=== PATIENT | male | born 1970 | race Caucasian/White ===

== ENCOUNTER 2022-11-24 15:14 | Outpatient (CLI) | payer BC, SELFPAY | END 2022-11-24 15:15 | disposition home or self-care (01) | PROVIDERS: PCP Family Medicine; Visit Provider Family Medicine | DX: E13.9 Other specified diabetes mellitus without complications (principal); I10 Essential (primary) hypertension; E78.5 Hyperlipidemia, unspecified; E66.9 Obesity, unspecified | CPT/HCPCS: 80048; 80061 ==

== ENCOUNTER 2023-01-28 06:09 | Outpatient (CLI) | payer BC, SELFPAY | END 2023-01-28 06:10 | disposition home or self-care (01) | LOC: OP CLINIC 06:09 | PROVIDERS: PCP Family Medicine; Visit Provider Internal Medicine | DX: Z12.11 Encounter for screening for malignant neoplasm of colon (principal); K63.5 Polyp of colon; K57.30 Diverticulosis of large intestine without perforation or abscess without bleeding | CPT/HCPCS: 45385; 88305; J2250; J3010 ==

== ENCOUNTER 2024-01-11 11:07 | Outpatient (CLI) | payer BC, SELFPAY | END 2024-01-11 11:08 | disposition home or self-care (01) | PROVIDERS: PCP Family Medicine; Visit Provider Family Medicine | DX: E78.2 Mixed hyperlipidemia (principal); I10 Essential (primary) hypertension; E11.65 Type 2 diabetes mellitus with hyperglycemia; Z12.5 Encounter for screening for malignant neoplasm of prostate | CPT/HCPCS: 80048; 80061; 84681; G0103 ==

== ENCOUNTER 2024-03-28 13:19 | Inpatient (IN) | payer BC, SELFPAY ==
[2024-03-28] VITALS (8 sets, daily range): BP systolic 125–164; BP diastolic 73–94; PULSE 72–86; RESP 18–20; TEMP 36.2–36.8; O2SAT 97–99; BMI 40.7; BMI 43.2
--- NOTE | 2024-03-28 13:39 | ED_ITS ---
HPI - Nausea/Vomiting/Diarrhea General Time Seen by Provider: 13:40 Date Seen: 03/28/24 Chief complaint: Nausea/Vomiting Stated complaint: dizzy, vomiting, diarrhea Time Seen by Provider: 03/28/24 13:25 Source: patient and RN notes reviewed Mode of arrival: ambulatory Limitations: no limitations History of Present Illness HPI Narrative: This 53-year-old male is ambulatory into the ED with complaints of nausea, vomiting and diarrhea since Tuesday. Today is currently Tuesday and his symptoms are ongoing. He notes that he feels the worst in the morning. There are times where he is able to eat and drink. He was started on Ozempic for diabetic control and weight loss so that he could have an abdominal wall hernia repaired. He is having no abdominal pain, he states his hernia is not even hurting. There has been no blood in the vomit or diarrhea. He has had no fevers. He had his dose increased about 3 weeks ago, symptoms would have started about 2 and adame lf weeks after the dose increase. He has had no travel, no known ill contacts, has not suspected any foods. He does note diminished appetite overall with this medicine. MD elicited complaint: nausea, vomiting and diarrhea Associated abdominal pain: No Related Data Home Medications ?Medication ?Instructions ?Recorded ?Confirmed aspirin 81 mg tablet,delayed 81 mg PO QDAY 06/08/23 03/28/24 release (Adult Aspirin Regimen) Previous Rx's ?Medication ?Instructions ?Recorded amlodipine 10 mg tablet 10 mg PO QDAY #90 tabs 01/11/24 atorvastatin 40 mg tablet 40 mg PO QHS #90 tabs 01/11/24 chlorthalidone 25 mg tablet 25 mg PO QDAY #90 tabs 01/11/24 glipizide 10 mg tablet, extended 10 mg PO QDAY #90 tabs 01/11/24 release 24 hr metformin 1,000 mg tablet 1,000 mg PO BID #180 tabs 01/11/24 telmisartan 80 mg tablet 80 mg PO QDAY #90 tabs 01/11/24 semaglutide 2 mg/dose (8 mg/3 mL) 2 mg (0.75 mL) subcut QWEEK #3 mL 03/05/24 subcutaneous pen injector (Ozempic) Allergies Allergy/AdvReac Type Severity Reaction Status Date / Time No Known Drug Allergies Allergy Verified 03/28/24 15:49 Review of Systems Status of ROS: Reports: 6 or more systems reviewed and unremarkable except as noted in History and below [facility] Medical History (Updated 03/28/24 @ 17:02 by Summer Acuna MD) Obesity ?E66.9 - Obesity, unspecified (ICD-10) Constipation ?K59.00 - Constipation, unspecified (ICD-10) Spinal stenosis of lumbar region ?M48.061 - Spinal stenosis, lumbar region without neurogenic claudication (ICD-10) Umbilical hernia ?K42.9 - Umbilical hernia without obstruction or gangrene (ICD-10) Hyperlipemia ?E78.5 - Hyperlipidemia, unspecified (ICD-10) Hypertension ?I10 - Essential (primary) hypertension (ICD-10) Benign positional vertigo ?H81.10 - Benign paroxysmal vertigo, unspecified ear (ICD-10) Type 2 diabetes mellitus ?E11.9 - Type 2 diabetes mellitus without complications (ICD-10) Nocturnal leg cramps ?G47.62 - Sleep related leg cramps (ICD-10) Surgical History (Updated 03/28/24 @ 17:17 by Summer Acuna MD) Hx of colonoscopy ?Z98.890 - Other specified postprocedural states (ICD-10) Status post tonsillectomy ?Z90.89 - Acquired absence of other organs (ICD-10) Status post arthroscopy of shoulder ?Z98.890 - Other specified postprocedural states (ICD-10) Family History Other Diabetes Social History (Updated 03/28/24 @ 18:20 by Summer Acuna MD) Narrative: 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 Sister is with him in the room today. Denies tobacco use. Drinks 3-4 beers every other day, last drank on Tuesday. Denies recreational drugs. FULL CODE What is your current living situation?: I presently have a place to live Problems where you live: no known problems Problems where you live details: lives with his mother and is her primary caregiver In the past 12 months, utilities in danger of being shut off: no In past 12 months, lack of transportation kept you from medical appts, meetings, work, or getting things needed for daily living: no In the past 12 mos, have been you worried that your food would run out before you had money to buy more?: never true In the past 12 mos, the food you bought just didn't last and you didn't have money to buy more?: never true Smoking Status: Former smoker Do you use any of these nicotine containing products: None How often do you have a drink containing alcohol: 2-3 times a week Alcohol type: beer How many standard drinks containing alcohol do you have on a typical day: 5 or 6 How often do you have six or more drinks on one occasion: Less than monthly AUDIT-C Alcohol total score: 6 Non-prescribed substance use: denies use Caffeine: No How often does anyone, including family, friends and others, physically hurt you : never How often does anyone, including family, friends and others, insult or talk down to you: never How often does anyone, including family, friends and others, threaten you with harm: never How often does anyone, including family, friends and others, scream or curse at you: never Little interest or pleasure in doing things: not at all Feeling down, depressed, or hopeless: not at all service: No Exam Const: Vital Signs, click to edit/add: Vital Signs - 24 hr 03/28/24 13:22 03/28/24 14:32 Temperature 97.2 F L Pulse Rate [Right Pulse Oximeter] 86 83 Respiratory Rate 18 18 Blood Pressure [Ri ght Upper Arm] 164/94 H 143/80 H Pulse Oximetry 98 98 Oxygen Delivery Me thod Room Air Room Air This 53-year-old male is alert, interactive, no apparent distress. He was ambulatory into the ED of his own accord. Pupils equal round reactive, sclera clear. Face atraumatic. Able speak in complete sentences. Lungs are clear, good air entry, no wheezing or crackles. CV regular rate and rhythm, no murmur, normal S1-S2, no S3-S4. Abdomen is moderately obese but soft, no rebound or guarding, nontender. He has a large hernia in the lower abdominal wall which is nontender, does contain bowel contents on palpation but again is nontender. Skin is alexis but without rash, skin is warm and dry. Documenting provider has reviewed patient's vital signs: yes Course Course ED Course: Reviewed with patient that I do suspect his dosage increase of the Ozempic. He has no abdominal pain, no blood in the stools, no fever. Makes this less likely to be infectious etiology. Will obtain a full complement of labs. Will start with a flat and upright. He understands that if there is any concerning changes on his labs, may need to consider CT imaging. Will give him a L of IV fluids, 4 mg IV Zofran. Have preliminarily discussed with him that he may need to hold or go down on dosage of the Ozempic and see if his symptoms improve if we find no other etiology. He may need to confer with his primary care provider on this as well. Reevaluation(s) Time of Reevaluation #1: 15:28 Reevaluation #1: Updated patient on his labs, the need to replace his sodium slowly in the rationale for that. He is going to start his oral and IV potassium replacement. Will have his sodium rechecked, obtain magnesium. Did review the elevated lipase and the fact that we will be getting CT imaging of his abdomen. Consultations Consultation #1: Have spoken with the hospitalist Dr. Acuna. Will recheck his sodium after the 1 L of fluid to have an idea of what maintenance fluids we should start him on. He is overall dry, hypokalemic as well. Unfortunately his lipase is elevated in the 1300 range. He does not have abdominal pain but given he was on Ozempic and has current nausea vomiting diarrhea, she and I both agree he should have abdominal imaging. I have ordered a CT of his abdomen pelvis with IV contrast. Will start some IV and oral potassium replacement. Nursing staff is provided an EKG which I will review. The preliminary plan is for the patient to be hospitalize here, just need to ensure that his CT is not showing anything overtly concerning. Time: 15:18 Consultation #2: Have updated Dr. Acuna. Sodium has not gone up significantly which is referable. His correction should be slow. Will initiate normal saline with 20 mEq potassium at 125 mL an hour. Awaiting his CT report. Reviewed with her that his magnesium did come back at 1.6. Time: 15:58 Consultation #3: Updated Dr. Acuna on the CT findings of pancreatitis. She accepts patient. Time: 16:14 Vital Signs Vital signs: Initial Vital Signs Temperature 97.2 F L 03/28/24 13:22 Temperature Source Temporal Artery Scan 03/28/24 13:22 Pulse Rate 86 03/28/24 13:22 Respiratory Rate 18 03/28/24 13:22 Blood Pressure 164/94 H 03/28/24 13:22 Blood Pressure Mean 117 H 03/28/24 13:22 Blood Pressure Position Sitting 03/28/24 13:22 Pulse Oximetry 98 03/28/24 13:22 Oxygen Delivery Method Room Air 03/28/24 13:22 Vital Signs Temperature 97.2 F L 03/28/24 13:22 Pulse Rate 86 03/28/24 13:22 Respiratory Rate 18 03/28/24 13:22 Blood Pressure 164/94 H 03/28/24 13:22 Pulse Oximetry 98 03/28/24 13:22 Oxygen Delivery Method Room Air 03/28/24 13:22 Temperature 97.9 F 03/28/24 17:44 Pulse Rate 83 03/28/24 14:32 Respiratory Rate 18 03/28/24 17:44 Blood Pressure 143/80 H 03/28/24 14:32 Pulse Oximetry 99 03/28/24 17:44 Oxygen Delivery Method Room Air 03/28/24 17:44 Medications Administered Medications: Generic Name Dose Route Start Last Admin Trade Name Freq PRN Reason Stop Dose Admin Sodium Chloride 1,000 mls @ 150 mls/hr 03/28/24 17:03 03/28/24 17:21 0.9 % Sodium Chloride 1000 Ml IV 150 mls/hr .Q6H40M BRENDEN Administration Insulin Aspart 0 unit 03/28/24 17:30 03/28/24 17:24 Insulin Aspart 100 Unit/Ml SUBCUT Not Given [facility] Protocol Discontinued Medications Generic Name Dose Route Start Last Admin Trade Name Freq PRN Reason Stop Dose Admin Sodium Chloride 1,000 mls @ 1,000 mls/hr 03/28/24 13:45 03/28/24 15:44 0.9 % Sodium Chloride 1000 Ml IV 03/28/24 14:44 Infused .Q1H BRENDEN Infusion Potassium Chloride 10 meq in 100 mls @ 100 mls/hr 03/28/24 15:30 03/28/24 18:28 Potassium Chloride IVPB 03/28/24 17:59 Infused Q90M BRENDEN Infusion Potassium Chloride/Sodium Chloride 1,000 mls @ 125 mls/hr 03/28/24 15:59 03/28/24 17:24 0.9 % Sodium Ch + Kcl 20 Meq/L IV Not Given .Q8H BRENDEN Ondansetron HCl 4 mg 03/28/24 13:44 03/28/24 14:18 Ondansetron 2 Mg/Ml Inj IVP 03/28/24 13:45 4 mg ONCE ONE Administration Potassium Bicarbonate 25 meq 03/28/24 15:30 03/28/24 17:21 Potassium Bicarb 25 Meq Effervescent Tab PO 03/28/24 17:31 25 meq Q2H BRENDEN Administration MDM - Nausea/Vomiting/Diarrhea Lab Data Attestation: I reviewed the patient's lab results. Labs: Lab Results 03/28/24 03/28/24 03/28/24 Range/Units 14:15 15:31 16:23 WBC 8.05 (4.50-11.00) K/uL RBC 4.98 (4.30-5.90) m/uL Hgb 14.8 (13.5-17.5) gm/dL Hct 39.7 (37.0-53.0) % MCV 80 (80-100) fL MCH 30 (26-34) pg MCHC 37 H (32-36) gm/dL RDW Coeff of Rosaura 11.7 (11.5-15.5) % Plt Count 263 (140-440) K/uL Neut % (Auto) 70.8 (42.0-72.0) % Lymph % (Auto) 17.8 L (20-44) % [place] % (Auto) 10.2 (0.0-11.0) % Eos % (Auto) 0.6 (0.0-7.0) % Baso % (Auto) 0.2 (0.0-3.0) % Neut # (Auto) 5.70 (1.7-7.0) K/uL Lymph # (Auto) 1.40 (0.90-2.90) K/uL [place] # (Auto) 0.80 (0.00-0.90) K/UL Eos # (Auto) 0.05 (0.00-0.50) K/uL Baso # (Auto) 0.02 (0.00-0.30) K/uL Abs Immat Gran (auto) 0.03 (0.00-0.30) K/uL Imm/Tot Granulo (auto) 0.4 % Sodium 111 L* 112 L* (135-149) mmol/L Potassium 2.7 L* (3.6-5.1) mmol/L Chloride 74 L (96-114) mmol/L Carbon Dioxide 22 (20-32) mmol/L Anion Gap 15 (7-15) mEq/L BUN 9 (7-30) mg/dL Creatinine 0.6 (0.5-1.5) mg/dL Estimated Creat Clear 152.69 Estimated GFR 114 ml/min Glucose 155 H (60-115) mg/dL Lactate (0.5-1.9) mmol/L Calcium 8.7 (8.4-10.6) mg/dL Magnesium 1.6 (1.5-2.6) mg/dL Total Bilirubin 1.6 H (0.1-1.5) mg/dL AST 33 (12-35) U/L ALT 49 (4-50) U/L Alkaline Phosphatase 65 (40-150) U/L C-Reactive Protein 0.7 (0.5-1.0) mg/dL Total Protein 7.6 (6.0-8.3) g/dL Albumin 4.7 (3.3-5.0) g/dL Triglycerides 77 (40-149) mg/dL Lipase 1385 H (23-300) U/L Lab Acknowledgement Test Added Imaging Data Abdominal x-ray: Attestation: I have reviewed the pertinent imaging results. My impression: A my preliminary review of his abdominal images, note no air-fluid levels, no concerning obstructive changes on my preliminary review. Radiologist's impression: Patient: ELIZABETH HECTOR Facility:?[facility] Patient ID:?[id number] Site Patient ID:?[id number]. Site :?[id number] Study:?XRay-Abdomen/Pelvis 2 view-03/28/2024 2:03:52 PM Ordering Physician:?Williams Bermudez Final Report: INDICATION: Nausea, vomiting, and diarrhea. History of abdominal wall hernia COMPARISON: March 14, 2018 CT/pelvis TECHNIQUE: Upright and supine radiographic view(s) of the abdomen. FINDINGS: No focal abnormally dilated loops of bowel are detected. No free intraperitoneal gas is detected. There are osseous degenerative changes. IMPRESSION: No focal abnormally dilated loops of bowel are detected. Dictated by Pedro Osullivan MD @ 03/28/2024 2:11:49 PM (Electronic Signature) CT scan - abdomen: Attestation: I have reviewed the pertinent imaging results. Radiologist's impression: Patient: ELIZABETH HECTOR Facility:?[facility] Patient ID:?[id number] Site Patient ID:?[id number]. Site :?[id number] Study:?CT-Chest/Abd/Pelvis W/ 147CC ISOVUE 370-03/28/2024 3:55:42 PM Ordering Physician:?Williams Bermudez Final Report: INDICATION: Nausea/vomiting/diarrhea, elevated lipase TECHNIQUE: CT chest, abdomen and pelvis acquired with 147 cc Isovue 370 IV contrast. COMPARISON: CT abdomen/pelvis, March 14, 2018 FINDINGS: CHEST: Cardiovascular structures: Heart size is normal. Coronary artery calcifications. Thoracic aorta and main pulmonary artery are normal in caliber. Mediastinum and luanne: No mass or adenopathy. Lungs and pleura: Lungs and pleural spaces are clear. No suspicious nodules, infiltrates, or effusions. Chest wall and axilla: No mass or adenopathy. Bones: No suspicious bone lesions. Unremarkable for age. ABDOMEN AND PELVIS: Liver: Hepatic steatosis.. Gallbladder and bile ducts: Unremarkable. Pancreas: Trace peripancreatic inflammatory stranding Spleen: Unremarkable. Adrenal glands: Unremarkable. Kidneys: Unremarkable. GI tract: Colonic diverticulosis without diverticulitis.. Vascular structures: Unremarkable. Lymph nodes: Unremarkable. Miscellaneous: Large umbilical hernia containing a loop of small bowel without obstruction. No free air or significant free fluid. Pelvic Organs: Unremarkable. Bones: No suspicious bone lesions. Unremarkable for age. IMPRESSION: Trace peripancreatic inflammatory stranding consistent with acute interstitial pancreatitis. No necrosis or drainable fluid collections. Otherwise, no acute intrathoracic or intra-abdominal/pelvic abnormality. Hepatic steatosis. Large umbilical hernia containing a loop of small bowel without obstruction. Please note that all CT scans at this facility use dose modulation, iterative reconstruction, and/or weight-based dosing when appropriate to reduce radiation dose to as low as reasonably achievable. Dictated by Horace Cristina MD @ 03/28/2024 4:06:32 PM (Electronic Signature) ECG Data Attestation: I personally reviewed and interpreted this ECG as follows: (Normal sinus rhythm, 80 beats per minute, nonspecific intraventricular conduction delay.) ECG interpretation date: 03/28/24 ECG interpretation time: 15:30 Prior ECG tracings: not available for review Discharge Plan Discharge Clinical Impression: Nausea, vomiting, and diarrhea, Acute pancreatitis, Acute hyponatremia, Acute hypokalemia Patient Disposition: Admitted As Inpatient
--- NOTE | 2024-03-28 13:45 | CRLHL7_ITS ---
For Patients: As a result of the Century Cures Act, medical imaging exams and procedure reports are released immediately into your electronic medical record. You may view this report before your referring provider. If you have questions, please contact your health care provider. INDICATION: Nausea, vomiting, and diarrhea. History of abdominal wall hernia COMPARISON: March 14, 2018 CT/pelvis TECHNIQUE: Upright and supine radiographic view(s) of the abdomen. FINDINGS: No focal abnormally dilated loops of bowel are detected. No free intraperitoneal gas is detected. There are osseous degenerative changes. IMPRESSION: No focal abnormally dilated loops of bowel are detected. Dictated by Pedro Osullivan MD @ 03/28/2024 2:11:49 PM (Electronically Signed)
[2024-03-28] MEDS: ONDANSETRON 2 MG/ML inj 4 MG IVP (14:18)
[2024-03-28] MEDS: 0.9 % SODIUM CHLORIDE 1000 ml 1,000 ML IV (14:19)
[2024-03-28 14:28] LABS: Basophils Absolute Auto 0.02 K/uL (0.00-0.30); Basophils Percent Auto 0.2 % (0.0-3.0); Eosinophils Absolute Auto 0.05 K/uL (0.00-0.50); Eosinophils Percent Auto 0.6 % (0.0-7.0); Hematocrit 39.7 % (37.0-53.0); Hemoglobin* 14.8 gm/dL (13.5-17.5); Immature Granulocytes Abs Auto 0.03 K/uL (0.00-0.30); Immature Granulocytes Pct Auto 0.4 %; Lymphocytes Percent Auto 17.8 % (20-44); Mean Corpuscular HGB Conc 37 gm/dL (32-36); Mean Corpuscular Hemoglobin 30 pg (26-34); Mean Corpuscular Volume 80 fL (80-100); Monocytes Percent Auto 10.2 % (0.0-11.0); Neutrophils Percent Auto 70.8 % (42.0-72.0); Platelet Count* 263 K/uL (140-440); RDW Coefficient of Variation % 11.7 % (11.5-15.5); Red Blood Count 4.98 m/uL (4.30-5.90); White Blood Count* 8.05 K/uL (4.50-11.00)
[2024-03-28 14:33] LABS: Slide Review Reflex No
[2024-03-28 14:51] LABS: Albumin* 4.7 g/dL (3.3-5.0); Chloride* 74 mmol/L (96-114)
[2024-03-28 14:53] LABS: Bilirubin Total* 1.6 mg/dL (0.1-1.5); Creatinine* 0.6 mg/dL (0.5-1.5); Est. Creatinine Clearance* 152.69; Estimated Glomerular Filt Rate 114 ml/min
[2024-03-28 14:54] LABS: Alanine Aminotransferase* 49 U/L (4-50); Alkaline Phosphatase* 65 U/L (40-150); Anion Gap 15 mEq/L (7-15); Aspartate Amino Transferase* 33 U/L (12-35); Blood Urea Nitrogen* 9 mg/dL (7-30); Carbon Dioxide* 22 mmol/L (20-32); Glucose* 155 mg/dL (60-115); Lipase* 1385 U/L (23-300); Total Protein* 7.6 g/dL (6.0-8.3)
[2024-03-28 14:55] LABS: Calcium* 8.7 mg/dL (8.4-10.6)
[2024-03-28 14:57] LABS: C Reactive Protein* 0.7 mg/dL (0.5-1.0)
[2024-03-28 15:17] LABS: Potassium* 2.7 mmol/L (3.6-5.1); Sodium* 111 mmol/L (135-149)
--- NOTE | 2024-03-28 15:21 | CRLHL7_ITS ---
For Patients: As a result of the Century Cures Act, medical imaging exams and procedure reports are released immediately into your electronic medical record. You may view this report before your referring provider. If you have questions, please contact your health care provider. INDICATION: Nausea/vomiting/diarrhea, elevated lipase TECHNIQUE: CT chest, abdomen and pelvis acquired with 147 cc Isovue 370 IV contrast. COMPARISON: CT abdomen/pelvis, March 14, 2018 FINDINGS: CHEST: Cardiovascular structures: Heart size is normal. Coronary artery calcifications. Thoracic aorta and main pulmonary artery are normal in caliber. Mediastinum and luanne: No mass or adenopathy. Lungs and pleura: Lungs and pleural spaces are clear. No suspicious nodules, infiltrates, or effusions. Chest wall and axilla: No mass or adenopathy. Bones: No suspicious bone lesions. Unremarkable for age. ABDOMEN AND PELVIS: Liver: Hepatic steatosis.. Gallbladder and bile ducts: Unremarkable. Pancreas: Trace peripancreatic inflammatory stranding Spleen: Unremarkable. Adrenal glands: Unremarkable. Kidneys: Unremarkable. GI tract: Colonic diverticulosis without diverticulitis.. Vascular structures: Unremarkable. Lymph nodes: Unremarkable. Miscellaneous: Large umbilical hernia containing a loop of small bowel without obstruction. No free air or significant free fluid. Pelvic Organs: Unremarkable. Bones: No suspicious bone lesions. Unremarkable for age. IMPRESSION: Trace peripancreatic inflammatory stranding consistent with acute interstitial pancreatitis. No necrosis or drainable fluid collections. Otherwise, no acute intrathoracic or intra-abdominal/pelvic abnormality. Hepatic steatosis. Large umbilical hernia containing a loop of small bowel without obstruction. Please note that all CT scans at this facility use dose modulation, iterative reconstruction, and/or weight-based dosing when appropriate to reduce radiation dose to as low as reasonably achievable. Dictated by Horace Cristina MD @ 03/28/2024 4:06:32 PM (Electronically Signed)
[2024-03-28 15:51] LABS: Magnesium* 1.6 mg/dL (1.5-2.6)
[2024-03-28 15:52] LABS: Sodium* 112 mmol/L (135-149)
[2024-03-28] MEDS: POTASSIUM BICARB 25 MEQ EFFERVESCENT TAB PO ×3 (15:59→22:10)
[2024-03-28] MEDS: POTASSIUM CHLORIDE 10 MEQ/100 ML PIGGYBACK 100 MEQ IVPB ×2 (15:59→17:21)
[2024-03-28 16:40] LABS: Triglycerides* 77 mg/dL (40-149)
--- NOTE | 2024-03-28 16:59 | P.IMHP_ITS ---
Hospitalist- H&P: HPI History of Present Illness Time Seen by Provider: 17:00 Date Seen: 03/28/24 Chief complaint: dizzy, vomiting, diarrhea Narrative: Pradeep Jacobs is a 53 year old male with history of diabetes mellitus type 2, hypertension, hyperlipidemia, BPPV, and a chronic large reducible umbilical hernia who suddenly felt nauseous Tuesday afternoon and then vomited every other day since then. On Tuesday he had a didi melt with [place] fries for lunch which is not what he usually eats. Shortly thereafter he started feeling nauseous and then on Tuesday he had several bouts of emesis. Tuesday he was feeling a little bit better and had his usual 3-4 beers. Tuesday he had several bouts of emesis again. He did not have any more alcohol after Tuesday. On Tuesday he felt a little bit better, but today he started having emesis again so he came into the emergency room. With each of these episodes he has had epigastric pain. He also felt dizzy Tuesday morning and had some vertigo with looking up this morning, but his turned into more lightheadedness now rather than vertigo. He still has his gallbladder and notes that his mother just had hers taken out last year for gallstones. There is no family history of hypertriglyceridemia. He has a large ventral hernia for which he was scheduled to have elective repair in [address] Manley, but they found that he had diabetes mellitus type 2 during the preop workup. Since then he has been trying to get that under control and lose weight in order to undergo the operation. Also of interest is that he started Ozempic in January and increased it for the 2nd time 3 weeks ago, the dose now being 2 mg every Tuesday. Review of Systems Status of ROS: Reports: 10 or more systems reviewed and unremarkable except as noted in History and below [facility] Medical History (Updated 03/28/24 @ 22:15 by Summer Acuna MD) Obesity ?E66.9 - Obesity, unspecified (ICD-10) Constipation ?K59.00 - Constipation, unspecified (ICD-10) Spinal stenosis of lumbar region ?M48.061 - Spinal stenosis, lumbar region without neurogenic claudication (ICD-10) Umbilical hernia ?K42.9 - Umbilical hernia without obstruction or gangrene (ICD-10) Hyperlipemia ?E78.5 - Hyperlipidemia, unspecified (ICD-10) Hypertension ?I10 - Essential (primary) hypertension (ICD-10) Benign positional vertigo ?H81.10 - Benign paroxysmal vertigo, unspecified ear (ICD-10) Type 2 diabetes mellitus ?E11.9 - Type 2 diabetes mellitus without complications (ICD-10) Nocturnal leg cramps ?G47.62 - Sleep related leg cramps (ICD-10) Surgical History (Updated 03/28/24 @ 17:17 by Summer Acuna MD) Hx of colonoscopy ?Z98.890 - Other specified postprocedural states (ICD-10) Status post tonsillectomy ?Z90.89 - Acquired absence of other organs (ICD-10) Status post arthroscopy of shoulder ?Z98.890 - Other specified postprocedural states (ICD-10) Family History Other Diabetes Social History (Updated 03/28/24 @ 18:20 by Summer Acuna MD) Narrative: 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 Sister is with him in the room today. Denies tobacco use. Drinks 3-4 beers every other day, last drank on Tuesday. Denies recreational drugs. FULL CODE What is your current living situation?: I presently have a place to live Problems where you live: no known problems Problems where you live details: lives with his mother and is her primary caregiver In the past 12 months, utilities in danger of being shut off: no In past 12 months, lack of transportation kept you from medical appts, meetings, work, or getting things needed for daily living: no In the past 12 mos, have been you worried that your food would run out before you had money to buy more?: never true In the past 12 mos, the food you bought just didn't last and you didn't have money to buy more?: never true Smoking Status: Former smoker Do you use any of these nicotine containing products: None How often do you have a drink containing alcohol: 2-3 times a week Alcohol type: beer How many standard drinks containing alcohol do you have on a typical day: 5 or 6 How often do you have six or more drinks on one occasion: Less than monthly AUDIT-C Alcohol total score: 6 Non-prescribed substance use: denies use Caffeine: No How often does anyone, including family, friends and others, physically hurt you : never How often does anyone, including family, friends and others, insult or talk down to you: never How often does anyone, including family, friends and others, threaten you with harm: never How often does anyone, including family, friends and others, scream or curse at you: never Little interest or pleasure in doing things: not at all Feeling down, depressed, or hopeless: not at all service: No Meds Home Medications and Allergies Home Medications ?Medication ?Instructions ?Recorded ?Confirmed ?Type aspirin 81 mg tablet,delayed 81 mg PO QDAY 06/08/23 03/28/24 History release (Adult Aspirin Regimen) Home Medication Comments: Three weeks ago, ozempic dose was increased to 2mg every Tuesday. Allergies Allergy/AdvReac Type Severity Reaction Status Date / Time No Known Drug Allergies Allergy Verified 03/28/24 15:49 Exam Narrative: Exam Narrative: General: No acute distress. Awake alert oriented x3. Morbidly obese. HEENT: Normocephalic atraumatic, pupils equally round and reactive to light and accommodation. Oropharynx clear. Mucous membranes are moist. No cervical lymphadenopathy, thyromegaly or carotid bruits. No JVD. Cardiovascular: Regular rate and rhythm. No murmurs, gallops, or rubs. Chest: No increased work of breathing. Clear to auscultation bilaterally. No crackles or wheezes. Abdomen: Bowel sounds present. Soft, nondistended, nontender. Large umbilical hernia, reducible, nontender. No hepatosplenomegaly or masses. Extremities: No edema, no cyanosis or clubbing. Skin: No jaundice, no pallor, no rashes. Neuro: There are no focal deficits. Gait is within normal limits. No nystagmus. He is able to turn around both directions without getting dizzy. Able to turn head both directions without getting dizzy or developing nystagmus. No facial asymmetry. Tongue is midline. Strength is 5/5 in all 4 extremities. Light touch sensation is intact in face body and extremities. Coordination is intact in upper and lower extremities. Const: Vital Signs, click to edit/add: Vital Signs - 24 hr 03/28/24 13:22 03/28/24 14:32 Temperature 97.2 F L Pulse Rate [Right Pulse Oximeter] 86 83 Respiratory Rate 18 18 Blood Pressure [Ri ght Upper Arm] 164/94 H 143/80 H Pulse Oximetry 98 98 Oxygen Delivery Me thod Room Air Room Air Hospitalist - H&P: Result Labs Labs: Short CBC 03/28/24 Range/Units 14:15 WBC 8.05 (4.50-11.00) K/uL Hgb 14.8 (13.5-17.5) gm/dL Hct 39.7 (37.0-53.0) % Plt Count 263 (140-440) K/uL BMP 03/28/24 03/28/24 14:15 15:31 Sodium 111 L* 112 L* Potassium 2.7 L* Chloride 74 L Carbon Dioxide 22 BUN 9 Creatinine 0.6 Glucose 155 H Calcium 8.7 Liver Function 03/28/24 Range/Units 14:15 Total Bilirubin 1.6 H (0.1-1.5) mg/dL AST 33 (12-35) U/L ALT 49 (4-50) U/L Alkaline Phosphatase 65 (40-150) U/L Albumin 4.7 (3.3-5.0) g/dL 03/28/2024 EKG: Normal sinus rhythm, 80 beats per minute, nonspecific intraventricular block. Cannot rule out inferior infarct, age undetermined. Ordering Physician: Lara Kramer M.D. Date of Service: 03/28/24 Procedure(s): XR abdomen min 2V Accession Number(s): [id number] cc: Adalberto Tripathi M.D.; Lara Kramer M.D.~ For Patients: As a result of the 21st Century Cures Act, medical imaging exams and procedure reports are released immediately into your electronic medical record. You may view this report before your referring provider. If you have questions, please contact your health care provider. INDICATION: Nausea, vomiting, and diarrhea. History of abdominal wall hernia COMPARISON: March 14, 2018 CT/pelvis TECHNIQUE: Upright and supine radiographic view(s) of the abdomen. FINDINGS: No focal abnormally dilated loops of bowel are detected. No free intraperitoneal gas is detected. There are osseous degenerative changes. IMPRESSION: No focal abnormally dilated loops of bowel are detected. Dictated by Pedro Osullivan MD @ 03/28/2024 2:11:49 PM (Electronically Signed) Ordering Physician: Lara Kramer M.D. Date of Service: 03/28/24 Procedure(s): CT chest abdomen pelv w con Accession Number(s): [id number] cc: Adalberto Tripathi M.D.; Lara Kramer M.D.~ For Patients: As a result of the Cures Act, medical imaging exams and procedure reports are released immediately into your electronic medical record. You may view this report before your referring provider. If you have questions, please contact your health care provider. INDICATION: Nausea/vomiting/diarrhea, elevated lipase TECHNIQUE: CT chest, abdomen and pelvis acquired with 147 cc Isovue 370 IV contrast. COMPARISON: CT abdomen/pelvis, March 14, 2018 FINDINGS: CHEST: Cardiovascular structures: Heart size is normal. Coronary artery calcifications. Thoracic aorta and main pulmonary artery are normal in caliber. Mediastinum and luanne: No mass or adenopathy. Lungs and pleura: Lungs and pleural spaces are clear. No suspicious nodules, infiltrates, or effusions. Chest wall and axilla: No mass or adenopathy. Bones: No suspicious bone lesions. Unremarkable for age. ABDOMEN AND PELVIS: Liver: Hepatic steatosis.. Gallbladder and bile ducts: Unremarkable. Pancreas: Trace peripancreatic inflammatory stranding Spleen: Unremarkable. Adrenal glands: Unremarkable. Kidneys: Unremarkable. GI tract: Colonic diverticulosis without diverticulitis.. Vascular structures: Unremarkable. Lymph nodes: Unremarkable. Miscellaneous: Large umbilical hernia containing a loop of small bowel without obstruction. No free air or significant free fluid. Pelvic Organs: Unremarkable. Bones: No suspicious bone lesions. Unremarkable for age. IMPRESSION: Trace peripancreatic inflammatory stranding consistent with acute interstitial pancreatitis. No necrosis or drainable fluid collections. Otherwise, no acute intrathoracic or intra-abdominal/pelvic abnormality. Hepatic steatosis. Large umbilical hernia containing a loop of small bowel without obstruction. Please note that all CT scans at this facility use dose modulation, iterative reconstruction, and/or weight-based dosing when appropriate to reduce radiation dose to as low as reasonably achievable. Dictated by Horace Cristina MD @ 03/28/2024 4:06:32 PM (Electronically Signed) Assessment and Plan Assessment and plan (1) Acute pancreatitis: Problem comment: - this is his 1st and only episode of acute pancreatitis. Possible causes include gallstone pancreatitis, alcoholic pancreatitis, hypertriglyceridemia, or adverse reaction to G LP 1 agonist. He had a fatty meal just before his symptoms started. His gallbladder was unremarkable on the CT abdomen, but his total bilirubin is slightly elevated and he does have a family history of symptomatic gallstones, so I will check a right upper quadrant ultrasound. I added triglycerides on to the emergency department labs and they were unremarkable. He does drink 3-4 beers every other day and even had some on Tuesday. I cannot rule out alcoholic pancreatitis. I spoke with him about cutting down and, better yet, abstaining from alcohol for that reason. He rece ntly increased Ozempic which can also cause acute pancreatitis. I have informed him and his sister that he should not go back on Ozempic or any of the G LP 1 agonist in the future after having an episode of acute pancreatitis. They demonstrated understanding. - admit for treatment of acute pancreatitis with clear liquid diet, IV fluids, oral and IV pain medication, antiemetics, and recheck CBC and CMP in the morning. Status: Acute (2) Acute hyponatremia: Problem comment: - difficult to tell if he is symptomatic since he also has an episode of acute pancreatitis. I think hyponatremia is likely secondary to dehydration and emesis with only water to rehydrate. He denies any confusion or weakness. He got a bolus of normal saline in the emergency department which brought his sodium up from 111-112. Four more hours of normal saline at maintenance rate has brought it up to 113. I explained to the patient at my goal for him is to bring him up 4-6 millimoles per L per 24 hours to prevent central pontine myelinolysis. His current rate of increase in sodium is adequate and acceptable, so I will continue normal saline at maintenance rate for acute pancreatitis and recheck sodium in the morning. I do not think he needs any additional measures to increase the sodium at this time since we would likely overshoot our goal. Status: Acute (3) Acute hypokalemia: Problem comment: - he was given IV and oral replacement in the emergency department with good effect. Potassium is now up to 3.3, give 1 more dose of oral potassium and recheck in the morning. Status: Acute (4) Type 2 diabetes mellitus: Problem comment: Dx 2018 - due to electrolyte abnormalities and since he will only be taking clears overnight, I will hold glipizide and metformin - start insulin sliding scale with 4 times a day Accu-Cheks Status: Chronic (5) Hypertension: Problem comment: Due to electrolyte abnormalities, I will hold chlorthalidone and telmisartan. Continue amlodipine. Monitor blood pressure. Status: Chronic (6) Hyperlipemia: Problem comment: Hold atorvastatin for tonight since bilirubin is elevated, recheck LFTs in the morning Status: Chronic (7) Umbilical hernia: Problem comment: - nontender, reducible - had established with Dr. Manley from General surgery for this in 2018, but has been in the able to lose enough weight to undergo the surgery Status: Chronic
[2024-03-28] MEDS: 0.9 % SODIUM CHLORIDE 1000 ml 1,000 ML 150 ML IV ×2 (17:21→20:54)
[2024-03-28 20:15] LABS: Potassium* 3.3 mmol/L (3.6-5.1)
[2024-03-28 20:22] LABS: Sodium* 113 mmol/L (135-149)
[2024-03-29 02:40] VITALS: BP 114/77; PULSE 76; RESP 18; TEMP 36.6; O2SAT 99
[2024-03-29] MEDS: 0.9 % SODIUM CHLORIDE 1000 ml 1,000 ML 150 ML IV (03:34)
--- NOTE | 2024-03-29 06:16 | PC.NURSE ---
Shift note: Pt's condition is improving as no nausea, vomiting or diarrhea recorded this shift. Alert and oriented, ambulated independent in room. Blood glucose level at 2100 was 149, no insulin given per sliding scale. Visible hernial at the lower abdomen, no abdominal pain or tenderness. Mild elevated systolic Bp noted. Pt had adequate sleep. K+ level still below 3.5. Oral K+ bicarbonate given. Labs drawn this morning.
[2024-03-29 06:27] LABS: Basophils Absolute Auto 0.03 K/uL (0.00-0.30); Basophils Percent Auto 0.5 % (0.0-3.0); Eosinophils Absolute Auto 0.05 K/uL (0.00-0.50); Eosinophils Percent Auto 0.9 % (0.0-7.0); Hematocrit 36.6 % (37.0-53.0); Hemoglobin* 13.7 gm/dL (13.5-17.5); Immature Granulocytes Abs Auto 0.02 K/uL (0.00-0.30); Immature Granulocytes Pct Auto 0.4 %; Lymphocytes Absolute Auto 1.56 K/uL (0.90-2.90); Lymphocytes Percent Auto 27.9 % (20-44); Mean Corpuscular HGB Conc 37 gm/dL (32-36); Mean Corpuscular Hemoglobin 30 pg (26-34); Mean Corpuscular Volume 81 fL (80-100); Monocytes Percent Auto 11.3 % (0.0-11.0); Neutrophils Absolute Auto 3.31 K/uL (1.7-7.0); Platelet Count* 214 K/uL (140-440); Red Blood Count 4.53 m/uL (4.30-5.90)
[2024-03-29 06:33] LABS: Slide Review Reflex No
[2024-03-29 06:40] LABS: Chloride* 85 mmol/L (96-114)
[2024-03-29 06:43] LABS: Alanine Aminotransferase* 47 U/L (4-50); Alkaline Phosphatase* 53 U/L (40-150); Aspartate Amino Transferase* 28 U/L (12-35); Bilirubin Total* 1.3 mg/dL (0.1-1.5); Blood Urea Nitrogen* 7 mg/dL (7-30); Carbon Dioxide* 26 mmol/L (20-32); Creatinine* 0.7 mg/dL (0.5-1.5); Est. Creatinine Clearance* 130.87; Estimated Glomerular Filt Rate 109 ml/min; Glucose* 113 mg/dL (60-115); Total Protein* 6.5 g/dL (6.0-8.3)
[2024-03-29 06:44] LABS: Calcium* 8.4 mg/dL (8.4-10.6)
[2024-03-29 06:50] LABS: Anion Gap 9 mEq/L (7-15)
[2024-03-29 06:51] LABS: Potassium* 2.9 mmol/L (3.6-5.1); Sodium* 120 mmol/L (135-149)
[2024-03-29 07:00] VITALS: BP 126/77; PULSE 70; PULSE 77; RESP 18; TEMP 36.5; O2SAT 98
[2024-03-29] MEDS: POTASSIUM BICARB 25 MEQ EFFERVESCENT TAB 50 MEQ PO ×2 (07:14→14:17)
[2024-03-29] MEDS: 5 % DEXTROSE 1000 ML 1,000 ML 50 ML IV (07:37)
[2024-03-29] MEDS: 5 % DEXTROSE 1000 ML 1,000 ML 100 ML IV (07:38)
[2024-03-29] MEDS: AMLODIPINE 10 MG TABLET PO (07:38)
--- NOTE | 2024-03-29 08:00 | CRLHL7_ITS ---
For Patients: As a result of the Century Cures Act, medical imaging exams and procedure reports are released immediately into your electronic medical record. You may view this report before your referring provider. If you have questions, please contact your health care provider. Indication: Pancreatitis. Family history of gallstones Technique: Sonography of the abdomen was performed limited to the structures discussed below Comparison: No prior ultrasound Findings: Gallbladder wall thickness is normal at 2 millimeters. No sludge, calculus or pericholecystic fluid collection. No reported sonographic Spivey`s sign. The common duct measures 6 millimeters which is considered normal for a patient of this age. There is hepatic steatosis. Impression: Normal-appearing gallbladder. Common bile duct of normal caliber. Hepatic steatosis. Dictated by Tucker Alex MD @ 03/29/2024 7:10:58 AM (Electronically Signed)
[2024-03-29 11:00] VITALS: BP 104/68; PULSE 87; RESP 18; TEMP 37.2; O2SAT 99
[2024-03-29 11:22] LABS: Chloride* 85 mmol/L (96-114); Potassium* 3.4 mmol/L (3.6-5.1)
[2024-03-29 11:25] LABS: Anion Gap 12 mEq/L (7-15); Blood Urea Nitrogen* 8 mg/dL (7-30); Carbon Dioxide* 23 mmol/L (20-32); Creatinine* 0.7 mg/dL (0.5-1.5); Est. Creatinine Clearance* 130.87; Estimated Glomerular Filt Rate 109 ml/min
[2024-03-29 11:26] LABS: Calcium* 8.7 mg/dL (8.4-10.6); Glucose* 202 mg/dL (60-115)
[2024-03-29 11:30] LABS: Sodium* 120 mmol/L (135-149)
--- NOTE | 2024-03-29 12:26 | REH.OT ---
OT: Order received, chart reviewed, per MD no inpatient OT evaluation needed. Will defer eval.
--- NOTE | 2024-03-29 12:56 | PM.IMPN1 ---
Progress Note: A&P Assessment and plan (1) Acute pancreatitis: Problem details: First episode of pancreatitis. CT and ultrasound showed no biliary disease. Likely cause is Ozempic. Alcohol may be contributing as well. He reports 5 beers per day. Recommend stopping both for now. Clinically improving. Advance diet. Status: Acute (2) Acute hyponatremia: Problem details: Likely due to recurrent vomiting, poor food intake and ongoing free water intake. Was correcting rapidly overnight so switched to D5W to slow the sodium correction. Status: Acute (3) Acute hypokalemia: Problem details: Correcting with oral medication. Status: Acute (4) Type 2 diabetes mellitus: Problem details: Resume home medications except stop Ozempic. Status: Chronic (5) Umbilical hernia: Problem details: - nontender, reducible - had established with Dr. Manley from General surgery for this in 2018, but has been in the able to lose enough weight to undergo the surgery Status: Chronic (6) Obesity: Status: Chronic (7) Nausea, vomiting, and diarrhea: Problem details: Appears to have resolved. Due to Ozempic/pancreatitis Status: Acute Plan Continue in hospital for ongoing close monitoring and management of sodium correction and patient's ability to take in p.o. food and fluid. Time Spent With Patient Total time spent: 60 minutes Subjective Date Seen: 03/29/24 Interval history: Pradeep is a 53-year-old male with a history of type 2 diabetes mellitus, hypertension, hyperlipidemia, large umbilical hernia who presents with a 1 week history of abdominal pain, nausea and vomiting. Symptoms started last Tuesday. He has had very little oral intake. He has had recurrent vomiting. He has been able to keep some water down. Over the past week he has gotten worse and thus came to the emergency department for evaluation. No bloody emesis. No previous episodes like this. He has been on Ozempic injections weekly on Tuesday for 2 months. He had an increase in his dose 3 weeks ago. His last injection was on Tuesday, 3 days ago. He was started on Ozempic to improve blood sugar control and help him lose weight. This was requested in anticipation of him undergoing surgery to repair his large umbilical l hernia. In the emergency room he was found to have pancreatitis based on elevated lipase and CT findings. He is found to have hyponatremia with a sodium of 111 and hypokalemia with a potassium of 2.7. He received normal saline and supplemental potassium. This morning his sodium is up to 120 in his potassium is 3.4. Triglycerides are normal. Glucose is 202. Hemoglobin A1c in January was 10.7. He reports feeling better this morning. He is hungry. His abdominal pain is much better. Overall feeling much better. Exam Narrative: Exam Narrative: He is alert and appears in no distress. Eyes normal. Oropharynx normal. Small airway. Neck is supple without mass or adenopathy. Respirations are clear to auscultation. Cardiovascular: S1, S2, regular rate and rhythm. No murmur gallop or rub. Abdomen: Bowel sounds are active. Abdomen is soft without tenderness or mass. Const: Vital Signs, click to edit/add: Vital Signs - 24 hr 03/28/24 13:22 03/28/24 14:32 03/28/24 17:03 Temperature 97.2 F L Pulse Rate Pulse Rate [Right Pulse Oximeter] 86 83 Respiratory Rate 18 18 Blood Pressure [Le ft Arm] Blood Pressure [Ri ght Upper Arm] 164/94 H 143/80 H Pulse Oximetry 98 98 99 Oxygen Delivery Wy thod Room Air Room Air 03/28/24 17:44 03/28/24 17:44 03/28/24 19:00 Temperature 97.9 F 98.2 F Pulse Rate Pulse Rate [Right Pulse Oximeter] 82 Respiratory Rate 20 18 18 Blood Pressure [Le ft Arm] 142/73 H Blood Pressure [Ri ght Upper Arm] Pulse Oximetry 99 99 97 Oxygen Delivery Wy thod Room Air Room Air Room Air 03/28/24 22:15 03/28/24 22:17 03/28/24 22:17 Temperature 97.9 F Pulse Rate Pulse Rate [Right Pulse Oximeter] 72 72 Respiratory Rate 18 18 Blood Pressure [Le ft Arm] 125/80 Blood Pressure [Ri ght Upper Arm] Pulse Oximetry 98 98 Oxygen Delivery Wy thod Room Air 03/28/24 22:17 03/28/24 23:00 03/29/24 02:40 Temperature 97.9 F Pulse Rate 76 Pulse Rate [Right Pulse Oximeter] 76 Respiratory Rate 18 18 Blood Pressure [Le ft Arm] 114/77 Blood Pressure [Ri ght Upper Arm] Pulse Oximetry 98 99 Oxygen Delivery Wy thod Room Air Room Air 03/29/24 07:00 03/29/24 07:00 03/29/24 07:00 Temperature Pulse Rate 70 Pulse Rate [Right Pulse Oximeter] 77 Respiratory Rate 18 Blood Pressure [Le ft Arm] Blood Pressure [Ri ght Upper Arm] Pulse Oximetry 98 Oxygen Delivery Me thod 03/29/24 07:00 03/29/24 07:00 03/29/24 11:00 Temperature 97.7 F 98.9 F Pulse Rate Pulse Rate [Right Pulse Oximeter] 77 87 Respiratory Rate 18 18 18 Blood Pressure [Le ft Arm] 126/77 104/68 Blood Pressure [Ri ght Upper Arm] Pulse Oximetry 98 98 99 Oxygen Delivery Me thod Room Air Room Air Room Air Documenting provider has reviewed patient's vital signs: yes Labs Labs: Laboratory Results - last 24 hr 03/28/24 03/28/24 03/28/24 14:15 15:31 16:23 WBC 8.05 RBC 4.98 Hgb 14.8 Hct 39.7 MCV 80 MCH 30 MCHC 37 H RDW Coeff of Rosaura 11.7 Plt Count 263 Neut % (Auto) 70.8 Lymph % (Auto) 17.8 L [place] % (Auto) 10.2 Eos % (Auto) 0.6 Baso % (Auto) 0.2 Neut # (Auto) 5.70 Lymph # (Auto) 1.40 [place] # (Auto) 0.80 Eos # (Auto) 0.05 Baso # (Auto) 0.02 Abs Immat Gran (auto) 0.03 Imm/Tot Granulo (auto) 0.4 Sodium 111 L* 112 L* Potassium 2.7 L* Chloride 74 L Carbon Dioxide 22 Anion Gap 15 BUN 9 Creatinine 0.6 Estimated Creat Clear 152.69 Estimated GFR 114 Glucose 155 H Lactate Calcium 8.7 Magnesium 1.6 Total Bilirubin 1.6 H AST 33 ALT 49 Alkaline Phosphatase 65 C-Reactive Protein 0.7 Total Protein 7.6 Albumin 4.7 Triglycerides 77 Lipase 1385 H Lab Acknowledgement Test Added 03/28/24 03/29/24 03/29/24 19:57 06:01 11:00 WBC 5.60 RBC 4.53 Hgb 13.7 Hct 36.6 L MCV 81 MCH 30 MCHC 37 H RDW Coeff of Rosaura 12.0 Plt Count 214 Neut % (Auto) 59.0 Lymph % (Auto) 27.9 [place] % (Auto) 11.3 H Eos % (Auto) 0.9 Baso % (Auto) 0.5 Neut # (Auto) 3.31 Lymph # (Auto) 1.56 [place] # (Auto) 0.60 Eos # (Auto) 0.05 Baso # (Auto) 0.03 Abs Immat Gran (auto) 0.02 Imm/Tot Granulo (auto) 0.4 Sodium 113 L* 120 L* 120 L* Potassium 3.3 L 2.9 L* 3.4 L Chloride 85 L 85 L Carbon Dioxide 26 23 Anion Gap 9 12 BUN 7 8 Creatinine 0.7 0.7 Estimated Creat Clear 130.87 130.87 Estimated GFR 109 109 Glucose 113 202 H Lactate Calcium 8.4 8.7 Magnesium Total Bilirubin 1.3 AST 28 ALT 47 Alkaline Phosphatase 53 C-Reactive Protein Total Protein 6.5 Albumin 4.0 Triglycerides Lipase Lab Acknowledgement
[2024-03-29 14:18] VITALS: BMI 42.6
[2024-03-29 15:00] VITALS: BP 114/72; PULSE 87; PULSE 90; PULSE 95; RESP 18; TEMP 36.6; O2SAT 96; O2SAT 97
[2024-03-29 16:00] LABS: Potassium* 4.1 mmol/L (3.6-5.1)
[2024-03-29 16:03] LABS: Magnesium* 1.9 mg/dL (1.5-2.6)
[2024-03-29 16:06] LABS: Sodium* 119 mmol/L (135-149)
[2024-03-29] MEDS: INSULIN ASPART 100 UNIT/ML SUBCUT (17:41)
[2024-03-29] MEDS: METFORMIN 1,000 MG TABLET 1000 MG PO (17:42)
[2024-03-29 19:00] VITALS: BP 113/71; PULSE 87; RESP 18; TEMP 36.6; O2SAT 98
--- NOTE | 2024-03-29 22:16 | PC.NURSE ---
[id number]: Patient denies pain and nausea both. Afebrile this shift. Sodium labs continue to be checked frequently and meds adjusted accordingly. Up independently. Currently saline locked.
[2024-03-29 22:22] LABS: Sodium* 122 mmol/L (135-149)
[2024-03-29 23:00] VITALS: BP 117/77; PULSE 73; RESP 18; TEMP 36.6; O2SAT 98
[2024-03-29] MEDS: ATORVASTATIN CALCIUM 40 MG TABLET PO (23:03)
[2024-03-30 00:10] VITALS: PULSE 71
[2024-03-30 03:00] VITALS: BP 115/76; PULSE 74; RESP 16; TEMP 36.6; O2SAT 97
[2024-03-30 07:18] LABS: Chloride* 91 mmol/L (96-114); Potassium* 3.5 mmol/L (3.6-5.1)
[2024-03-30 07:21] LABS: Anion Gap 7 mEq/L (7-15); Blood Urea Nitrogen* 8 mg/dL (7-30); Carbon Dioxide* 26 mmol/L (20-32); Creatinine* 0.7 mg/dL (0.5-1.5); Est. Creatinine Clearance* 130.87; Estimated Glomerular Filt Rate 109 ml/min; Glucose* 135 mg/dL (60-115)
[2024-03-30 07:32] LABS: Sodium* 124 mmol/L (135-149)
--- NOTE | 2024-03-30 07:46 | PC.NURSE ---
END OF SHIFT NOTE:A&Ox4. DENIES CP, SOB, N/V. AMBULATES INDEPENDENTLY WITHIN ROOM. VSS ON RA; AFEBRILE. PT SLEPT ON/OFF THROUGHOUT HS. WT LOSS FROM ADMISSION DOWN ROUGHLY 12#. DR. MARTI UPDATED. NO NEW ORDERS. CALL LIGHT WITHIN PT?S REACH.?
[2024-03-30 08:25] VITALS: BP 114/86; PULSE 95; RESP 18; TEMP 36.5; O2SAT 97
[2024-03-30] MEDS: AMLODIPINE 10 MG TABLET PO (08:27)
[2024-03-30] MEDS: ASPIRIN 81 MG TABLET EC PO (08:27)
[2024-03-30] MEDS: METFORMIN 1,000 MG TABLET 1000 MG PO (08:27)
[2024-03-30] MEDS: POTASSIUM BICARB 25 MEQ EFFERVESCENT TAB PO (08:27)
[2024-03-30] MEDS: glipiZIDE XL 5 MG TAB 10 MG PO (08:27)
[2024-03-30] MEDS: SODIUM CHLORIDE 0.9 % (FLUSH) 10 ML SYRINGE 5 ML IVF (08:28)
[2024-03-30 08:30] VITALS: RESP 18; O2SAT 97
[2024-03-30 11:00] VITALS: BP 104/64; PULSE 75; RESP 18; TEMP 36.5; O2SAT 98
--- NOTE | 2024-03-30 14:06 | PM.DS1 ---
DS: Providers Provider Date Seen: 03/30/24 Date of admission: 03/28/24 16:32 Primary care physician: Adalberto Tripathi MD Admitting Clinician: Summer Acuna MD Date of Discharge: 03/30/24 DS: Diagnosis Discharge Diagnosis (1) Acute pancreatitis: Status: Acute Problem details: First episode of pancreatitis. CT and ultrasound showed no biliary disease. Likely cause is Ozempic. Alcohol may be contributing as well. He reports 5 beers per day. Recommend stopping both for now. Clinically improving. Advance diet. (2) Acute hyponatremia: Status: Acute Problem details: Likely due to recurrent vomiting, poor food intake and ongoing free water intake as well as chlorthalidone. Recheck in 3-4 days. Brief treatment with sodium chloride tablets. (3) Acute hypokalemia: Status: Acute Problem details: Correcting with oral medication. (4) Type 2 diabetes mellitus: Status: Chronic Problem details: Resume home medications except stop Ozempic. (5) Umbilical hernia: Status: Chronic Problem details: - nontender, reducible - had established with Dr. Manley from General surgery for this in 2018, but has been in the able to lose enough weight to undergo the surgery (6) Obesity: Status: Chronic (7) Nausea, vomiting, and diarrhea: Status: Acute Problem details: Appears to have resolved. Due to Ozempic/pancreatitis. DS: Summary Hospital Course Hospital Course: Pradeep is a 53-year-old male with a history of type 2 diabetes mellitus, hypertension, hyperlipidemia, large umbilical hernia who presents with a 1 week history of abdominal pain, nausea and vomiting. Symptoms started last Tuesday. He has had very little oral intake. He has had recurrent vomiting. He has been able to keep some water down. Over the past week he has gotten worse and thus came to the emergency department for evaluation. No bloody emesis. No previous episodes like this. He has been on Ozempic injections weekly on Tuesday for 2 months. He had an increase in his dose 3 weeks ago. His last injection was on Tuesday, 3 days ago. He was started on Ozempic to improve blood sugar control and help him lose weight. This was requested in anticipation of him undergoing surgery to repair his large umbilical l hernia. In the emergency room he was found to have pancreatitis based on elevated lipase and CT findings. He is found to have hyponatremia with a sodium of 111 and hypokalemia with a potassium of 2.7. The patient initially treated with normal saline. Sodium correction was a little too fast so he received D5W. Subsequently has gradually improved his sodium without specific therapy. Potassium improved with replacement. He has been able to eat and drink without difficulties. He has had no significant nausea or abdominal pain since admission. Sodium is only up to 124 at discharge but he is anxious to go home. Will discharge with sodium chloride tablets tid pending outpatient follow up in 3-4 days. I expect continued improvement in his serum sodium off ozempic and chlorthalidone. Likely will not need salt tablets after a few days. Status at Discharge Functional status at discharge: independent ambulation Overall status at discharge: patient is back to baseline Time Spent with Patient Time attestation: Total time spent providing and/or coordinating discharge services: 40 minutes Exam Narrative: Exam Narrative: He is alert pleasant and in no distress. Speech is normal. Breathing is unlabored. Abdomen is soft. No tenderness. Const: Vital Signs, click to edit/add: Vital Signs - 24 hr 03/29/24 15:00 03/29/24 15:00 03/29/24 15:00 Temperature Pulse Rate 95 Pulse Rate [Right Pulse Oximeter] 87 Respiratory Rate 18 Blood Pressure [Le ft Arm] Pulse Oximetry 96 Oxygen Delivery Me thod 03/29/24 15:00 03/29/24 15:00 03/29/24 19:00 Temperature 98 F 97.8 F Pulse Rate Pulse Rate [Right Pulse Oximeter] 90 87 Respiratory Rate 18 18 18 Blood Pressure [Le ft Arm] 114/72 113/71 Pulse Oximetry 96 97 [facility] Air 03/29/24 23:00 03/30/24 00:10 03/30/24 03:00 Temperature 98 F Pulse Rate 71 Pulse Rate [Right Pulse Oximeter] 73 Respiratory Rate 18 Blood Pressure [Le ft Arm] 117/77 Pulse Oximetry 98 97 [facility] 03/30/24 03:00 03/30/24 03:00 03/30/24 03:00 Temperature 97.9 F Pulse Rate Pulse Rate [Right Pulse Oximeter] 74 74 Respiratory Rate 16 16 16 Blood Pressure [Le ft Arm] 115/76 Pulse Oximetry 97 97 [facility] 03/30/24 08:25 03/30/24 08:30 03/30/24 08:30 Temperature 97.7 F Pulse Rate Pulse Rate [Right Pulse Oximeter] 95 Respiratory Rate 18 18 Blood Pressure [Le ft Arm] 114/86 Pulse Oximetry 97 97 97 Oxygen Delivery Me thod Room Air Room Air 03/30/24 11:00 Temperature 97.7 F Pulse Rate Pulse Rate [Right Pulse Oximeter] 75 Respiratory Rate 18 Blood Pressure [Le ft Arm] 104/64 Pulse Oximetry 98 Oxygen Delivery Me thod Room Air Documenting provider has reviewed patient's vital signs: yes DS: Data Data Completed and Pending Labs on day of discharge: Labs from last 24 hours 03/30/24 03/29/24 03/29/24 06:12 21:50 15:08 Sodium 124 L* 122 L* 119 L* Potassium 3.5 L 4.1 Chloride 91 L Carbon Dioxide 26 Anion Gap 7 BUN 8 Creatinine 0.7 Estimated Creat Clear 130.87 Estimated GFR 109 Glucose 135 H Calcium 9.[address] Chest/Ab/Pelvis: Radiologist's impression: INDICATION: Nausea/vomiting/diarrhea, elevated lipase TECHNIQUE: CT chest, abdomen and pelvis acquired with 147 cc Isovue 370 IV contrast. COMPARISON: CT abdomen/pelvis, March 14, 2018 FINDINGS: CHEST: Cardiovascular structures: Heart size is normal. Coronary artery calcifications. Thoracic aorta and main pulmonary artery are normal in caliber. Mediastinum and luanne: No mass or adenopathy. Lungs and pleura: Lungs and pleural spaces are clear. No suspicious nodules, infiltrates, or effusions. Chest wall and axilla: No mass or adenopathy. Bones: No suspicious bone lesions. Unremarkable for age. ABDOMEN AND PELVIS: Liver: Hepatic steatosis.. Gallbladder and bile ducts: Unremarkable. Pancreas: Trace peripancreatic inflammatory stranding Spleen: Unremarkable. Adrenal glands: Unremarkable. Kidneys: Unremarkable. GI tract: Colonic diverticulosis without diverticulitis.. Vascular structures: Unremarkable. Lymph nodes: Unremarkable. Miscellaneous: Large umbilical hernia containing a loop of small bowel without obstruction. No free air or significant free fluid. Pelvic Organs: Unremarkable. Bones: No suspicious bone lesions. Unremarkable for age. IMPRESSION: Trace peripancreatic inflammatory stranding consistent with acute interstitial pancreatitis. No necrosis or drainable fluid collections. Otherwise, no acute intrathoracic or intra-abdominal/pelvic abnormality. Hepatic steatosis. Large umbilical hernia containing a loop of small bowel without obstruction. US - abdomen: Radiologist's impression: Indication: Pancreatitis. Family history of gallstones Technique: Sonography of the abdomen was performed limited to the structures discussed below Comparison: No prior ultrasound Findings: Gallbladder wall thickness is normal at 2 millimeters. No sludge, calculus or pericholecystic fluid collection. No reported sonographic Spivey`s sign. The common duct measures 6 millimeters which is considered normal for a patient of this age. There is hepatic steatosis. Impression: Normal-appearing gallbladder. Common bile duct of normal caliber. Hepatic steatosis. Discharge Plan Discharge Disposition: Home, Self-Care Date of Admission: 03/28/24 16:32 Attending Provider on Discharge: Duc Padilla Primary Care Provider: Adalberto Tripathi Condition: Improved Anticipated Discharge Date/Time: 03/30/24 16:00 Discharge Medications: New sodium chloride 1,000 mg tablet,soluble 1,000 mg PO TID Qty: 20 0RF Continued aspirin [Adult Aspirin Regimen] 81 mg tablet,delayed release (DR/EC) 81 mg PO DAILY metformin 1,000 mg tablet 1,000 mg PO BID Qty: 180 3RF atorvastatin 40 mg tablet 40 mg PO HS glipizide 10 mg tablet extended release 24hr 10 mg PO DAILY amlodipine 10 mg tablet 10 mg PO DAILY telmisartan 80 mg tablet 80 mg PO DAILY Discontinued chlorthalidone 25 mg tablet 25 mg PO DAILY Ozempic 2 mg/dose (8 mg/3 mL) pen injector 2 mg subcut QWEEK Qty: 3 5RF Patient Comments: Went up to 2 three weeks ago MONDAYS Discharge Orders: Discharge Order (Routine); Ordered 03/30/24 Ordered By: Duc Padilla Additional Instructions: Stop taking Ozempic due to pancreatitis Stop taking chlorthalidone due to low sodium. Activity Level: Activity as Tolerated Discharge Diet: Diabetic Follow Up Appointments: Adalberto Tripathi MD [Primary Care Provider] - (Follow-up in 3-4 days for recheck of labs, basic metabolic panel, blood pressure, medications.) Forms: [email or web address] Info Instructions
[2024-03-30 15:00] VITALS: PULSE 75; RESP 18; O2SAT 98
[2024-03-30 15:37] LABS: Potassium* 3.7 mmol/L (3.6-5.1)
[2024-03-30 15:42] LABS: Sodium* 124 mmol/L (135-149)
--- NOTE | 2024-03-30 17:45 | PC.NURSE ---
Discharge: The patient discharged home with a friend and ambulated off the unit. All discharge instructions regarding NA tablets were reviewed and discussed with the patient. I encouraged him to come in if he begins to feel ill again. Esther TOBIN BSN
== END 2024-03-30 17:28 | disposition home or self-care (01) | DRG 282 ==
LOC: ED 16:15 → MEDSURG 16:33
PROVIDERS: Family Medicine; Admitting Provider Family Medicine; Emergency Provider Family Medicine; PCP Family Medicine; Visit Provider Family Medicine
DX: K85.30 Drug induced acute pancreatitis without necrosis or infection (principal); T38.3X5A Adverse effect of insulin and oral hypoglycemic [antidiabetic] drugs, initial encounter; Z79.85 Long-term (current) use of injectable non-insulin antidiabetic drugs; E87.1 Hypo-osmolality and hyponatremia; E87.6 Hypokalemia; E86.0 Dehydration; E11.9 Type 2 diabetes mellitus without complications; Z79.84 Long term (current) use of oral hypoglycemic drugs; I10 Essential (primary) hypertension; K42.9 Umbilical hernia without obstruction or gangrene; E66.9 Obesity, unspecified; M48.061 Spinal stenosis, lumbar region without neurogenic claudication; E78.5 Hyperlipidemia, unspecified; Z68.41 Body mass index [BMI] 40.0-44.9, adult
CPT/HCPCS: 36415; 71260; 74019; 74177; 76705; 80048; 80053; 82962; 83605; 83690; 83735; 84132; 84295; 84478; 85025; 86140; 94761; 99285; A9270; J2405; J3480; J7030; J7070; Q9967

== ENCOUNTER 2024-06-13 09:05 | Outpatient (CLI) | payer BC, SELFPAY | END 2024-06-13 09:06 | disposition home or self-care (01) | PROVIDERS: PCP Family Medicine; Visit Provider Family Medicine | DX: I10 Essential (primary) hypertension (principal); E78.5 Hyperlipidemia, unspecified; E11.9 Type 2 diabetes mellitus without complications; E87.1 Hypo-osmolality and hyponatremia; E66.9 Obesity, unspecified; K85.30 Drug induced acute pancreatitis without necrosis or infection | CPT/HCPCS: 80061; 83690 ==

== ENCOUNTER 2024-11-05 11:23 | Outpatient (CLI) | payer BC, SELFPAY | END 2024-11-05 11:24 | disposition home or self-care (01) | PROVIDERS: PCP Family Medicine; Visit Provider Family Medicine | DX: I10 Essential (primary) hypertension (principal); E11.65 Type 2 diabetes mellitus with hyperglycemia; Z79.84 Long term (current) use of oral hypoglycemic drugs | CPT/HCPCS: 80048 ==

== ENCOUNTER 2025-04-16 10:50 | Outpatient (CLI) | payer BC, SELFPAY | END 2025-04-16 10:51 | disposition home or self-care (01) | PROVIDERS: PCP Family Medicine; Visit Provider Family Medicine | DX: E11.9 Type 2 diabetes mellitus without complications (principal); E78.2 Mixed hyperlipidemia | CPT/HCPCS: 80061; 82043; 82570 ==